=== PATIENT | male | born 1955 | race Caucasian/White ===

== ENCOUNTER 2024-04-18 08:04 | Day surgery (SDC) | payer MEDICARE, SELFPAY ==
[2024-03-29 15:11] VITALS: BMI 31.0
[2024-04-05 09:38] VITALS: BMI 30.1
--- NOTE | 2024-04-18 06:55 | WPDANESEPPF ---
Anes - Initial Pre Proc Eval Procedure: Operation Date: 04/18/24 10:00 Proposed Procedures p Diagnostic Colonoscopy - Jonnie Proctor MD Date/Time: 04/18/24 06:55 Surgeon: Jonnie Proctor MD Pre Op Diagnosis: History of Colon Polyps, Hx of rectal cancer Patient Data Age: 69 Gender: M Height: 1.88 m Weight: 106.5 kg Allergies Allergy/AdvReac Type Severity Reaction Status Date / Time No Known Allergies Allergy Verified 04/18/24 08:41 Home Medications Medication Instructions Recorded Confirmed Type clobetasol 0.05 % topical cream See Rx Instructions .Route 10/24/23 04/18/24 Rx .COMPLEX #30 grams escitalopram oxalate 20 mg tablet See Rx Instructions .Route 10/24/23 04/18/24 Rx .COMPLEX #90 tabs omeprazole 40 mg capsule,delayed See Rx Instructions .Route 10/24/23 04/18/24 Rx release .COMPLEX #90 caps atorvastatin 20 mg tablet See Rx Instructions .Route 11/02/23 04/18/24 Rx .COMPLEX #90 tabs meloxicam 15 mg tablet See Rx Instructions .Route 04/08/24 04/18/24 Rx .COMPLEX #90 tabs alprazolam 0.25 mg tablet 0.25 mg PO TID PRN anxiety #30 tabs 04/11/24 04/18/24 Rx Patient hx anesthesia problems: none Family hx anesthesia problems: none Results Review: All pre-operative results and documents have been reviewed as part of the pre-operative evaluation. [facility] Past Medical History Medical History Depression Dyslipidemia Gastroesophageal reflux Hepatitis C antibody test negative (05/02/19) Prediabetes Rectal cancer (~2003) Surgical History Surgical History History of arthroplasty of left knee Family History Family History Father Diabetes mellitus Acute myocardial infarction Carcinoma of colon Family history of cardiovascular disease Family history of coronary artery disease Mother Diabetes mellitus Sibling Diabetes mellitus Social History Social History Smoking status: Former smoker Alcohol intake: current Alcohol use details: rarely Substance use: never Substance use type: does not use Lack of Transportation: No Lack of Food: Never True Current Housing: I Have Housing Concerned About Future Housing: No Difficulty Paying Gas/Electric Bills: No Difficulty Paying for Meds: No Currently Unemployed: No Education: Trade/Vocational Certificate Difficulty w/ Childcare or Family Care: No Living arrangements: with family Spiritual care concerns: No Anes - Eval Final PreProcedure Day of Procedure 04/18/24 06:55 Patient weight: overweight Heart: regular rate and rhythm Lungs: clear to auscultation Airway: Mallampati scale class II Neurological: alert and oriented Last oral intake: >/= 8 hours ASA classification: III Emergent: no Anesthetic plan: proceed Anesthesia type and monitoring: general GIVS and standard monitoring Results Review: All pre-operative results and documents have been reviewed as part of the pre-operative evaluation. Informed Consent: The patient's anesthetic plan and its attendant risks and benefits were discussed with the patient/family/POA. Questions were solicited and answers provided to the satisfaction of the patient/family/POA.
[2024-04-18 08:43] VITALS: BMI 29.3
[2024-04-18 08:44] VITALS: BP 129/101; PULSE 58; RESP 20; TEMP 36.2; O2SAT 97
[2024-04-18] MEDS: LACTATED RINGERS 1,000 ML 150 ML IV CONT (08:57)
--- NOTE | 2024-04-18 09:31 | PM.HPGS ---
History of Present Illness History of Present Illness Consent: Risks, benefits, and alternatives have been discussed and questions answered. Patient agrees to proceed with procedure. Chief complaint: History of Colon Polyps, Hx of rectal cancer Narrative: Jagdish Fried is a 69 year old male presents for colonoscopy. Patient has a history of rectal carcinoma in 2003. He is felt to be free of disease but did undergo chemotherapy and radiation. Patient subsequently has had colon polyps. Patient presents today for surveillance colonoscopy. Currently he reports bowel habits normal with no bleeding . his weight is stable. Review of Systems Review of Systems: All systems reviewed & are unremarkable except as noted in HPI and below PMFSH Past Medical History Medical History Depression Dyslipidemia Gastroesophageal reflux Hepatitis C antibody test negative (05/02/19) Prediabetes Rectal cancer (~2003) Surgical History Surgical History History of arthroplasty of left knee Family History Family History Father Diabetes mellitus Acute myocardial infarction Carcinoma of colon Family history of cardiovascular disease Family history of coronary artery disease Mother Diabetes mellitus Sibling Diabetes mellitus Social History Social History Smoking status: Former smoker Alcohol intake: current Alcohol use details: rarely Substance use: never Substance use type: does not use Lack of Transportation: No Lack of Food: Never True Current Housing: I Have Housing Concerned About Future Housing: No Difficulty Paying Gas/Electric Bills: No Difficulty Paying for Meds: No Currently Unemployed: No Education: Trade/Vocational Certificate Difficulty w/ Childcare or Family Care: No Living arrangements: with family Spiritual care concerns: No Meds Home Medications and Allergies Home Medications Medication Instructions Recorded Confirmed Type clobetasol 0.05 % topical cream See Rx Instructions .Route 10/24/23 04/18/24 Rx .COMPLEX #30 grams escitalopram oxalate 20 mg tablet See Rx Instructions .Route 10/24/23 04/18/24 Rx .COMPLEX #90 tabs omeprazole 40 mg capsule,delayed See Rx Instructions .Route 10/24/23 04/18/24 Rx release .COMPLEX #90 caps atorvastatin 20 mg tablet See Rx Instructions .Route 11/02/23 04/18/24 Rx .COMPLEX #90 tabs meloxicam 15 mg tablet See Rx Instructions .Route 04/08/24 04/18/24 Rx .COMPLEX #90 tabs alprazolam 0.25 mg tablet 0.25 mg PO TID PRN anxiety #30 tabs 04/11/24 04/18/24 Rx Allergies Allergy/AdvReac Type Severity Reaction Status Date / Time No Known Allergies Allergy Verified 04/18/24 08:41 Vital Signs Vital Signs - 24 hr 04/18/24 08:44 Temperature 97.2 F L Pulse Rate 58 L Respiratory Rate 20 Blood Pressure 129/101 H Pulse Oximetry 97 Oxygen Delivery Room Air Exam Narrative: Physical exam reveals patient to be alert. Vital signs stable. Is unremarkable. Patient is anicteric. Lungs are clear to auscultation and to heart is without murmur or extra sound. Abdomen bowel sounds are present soft nontender with no organomegaly. Digital external rectal exam normal. Assessment and Plan Assessment and plan (1) History of rectal cancer: Code(s): Z85.048 - Personal history of other malignant neoplasm of rectum, rectosigmoid junction, and anus Status: Acute Assessment and Plan: Patient has a history rectal cancer resected in subsequently treated with radiation and chemotherapy plan for surveillance colonoscopy at least every 3-5 years. (2) History of colon polyps: Code(s): Z86.0100 - Personal history of colon polyps, unspecified Status: Acute Assessment and Plan:
[2024-04-18 10:47] VITALS: BP 115/81; PULSE 55; RESP 16; O2SAT 95
[2024-04-18 10:57] VITALS: BP 120/92; PULSE 50; RESP 18; O2SAT 99
[2024-04-18 11:07] VITALS: BP 131/94; PULSE 52; RESP 18; O2SAT 99
--- NOTE | 2024-04-18 12:44 | WPDANESPN ---
Anes - Prog Note Post-Op Date/Time: 04/18/24 12:44 Cardiovascular status: normal Respiratory status: normal Airway patency: baseline Mental status: baseline Post-Op hydration status: normal Vital Signs: Last Vital Signs Temp 36.2 C L 04/18/24 08:44 Pulse 52 L 04/18/24 11:07 Resp 18 04/18/24 11:07 BP 131/94 H 04/18/24 11:07 Pulse Ox 99 04/18/24 11:07 O2 Del Method Room Air 04/18/24 11:07 Pain Score (VAS): 0 I/O: Intake & Output 04/17/24 04/18/24 04/18/24 23:59 07:59 15:59 Intake Total 600 Balance 600 Post-procedural complaints: none Patient Feedback: Patient satisfied with anesthetic care. Other Findings: Patient vital signs back to baseline. Patient denies nausea and vomiting. Patient's pain under control. Patient OK for discharge.
== END 2024-04-18 11:10 | disposition home or self-care (01) ==
PROVIDERS: PCP Family Medicine; Visit Provider Internal Medicine Gastroenterology
PROC: 0DJD8ZZ Inspection of Lower Intestinal Tract, Via Natural or Artificial Opening Endoscopic (ICD-10-PCS; CPT 45378; principal; 2024-04-18 10:00)
DX: Z85.048 Personal history of other malignant neoplasm of rectum, rectosigmoid junction, and anus (principal); K63.89 Other specified diseases of intestine
CPT/HCPCS: 45378